=== PATIENT | female | born 1940 | race American Indian/Alaskan Native ===

== ENCOUNTER 2017-10-05 13:18 | Emergency (ER) | payer OTHER, MEDICARE ==
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
[2017-10-05 14:02] VITALS: RESP 18; O2SAT 99; BMI 25.0
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
[2017-10-05 15:28] VITALS: BP 171/69; PULSE 59
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
[2017-10-05 19:41] VITALS: TEMP 98
== END 2017-10-05 15:30 | disposition home or self-care (01) ==
LOC: ED 13:18
DX: M75.32 Calcific tendinitis of left shoulder (principal); R07.89 Other chest pain; V43.52XA Car driver injured in collision with other type car in traffic accident, initial encounter; Y92.410 Unspecified street and highway as the place of occurrence of the external cause